=== PATIENT | female | born 1950 | race Caucasian/White ===

== ENCOUNTER 2017-05-22 08:13 | Inpatient (IN) | payer OTHER, BC ==
[~2017-05-22 08:13] MED LIST: ceFAZolin 2 GM/SWFI 2 GM/20 ML SYR IVP ONE
[2017-05-22] MEDS ORDERED: LIDOCAINE 1% 2 ML INJ ID PRN (10:24)
[2017-05-22] MEDS ORDERED: LR 1,000 ML IV ONE (10:24)
--- NOTE | 2017-05-22 11:04 | PDANEPAE ---
ANE History of Present Illness 66 year old female presents for left cerebellar mass resection. ANE Past Medical History - Cardiovascular History Hx Hypertension: Yes Hx Arrhythmias: No Hx Chest Pain: No Hx Coronary Artery / Peripheral Vascular Disease: No Hx CHF / Valvular Disease: No Hx Palpitations: No Cardiovascular History Comment: 128/80. on 3 meds for HTN, Chol Rx. 3 stents. - Pulmonary History Hx COPD: No Hx Asthma/Reactive Airway Disease: No Hx Recent Upper Respiratory Infection: No Hx Oxygen in Use at Home: No Hx Sleep Apnea: No Sleep Apnea Screening Result - Last Documented: Negative Pulmonary History Comment: 2014- SOB w/climbing stairs/hiking. Pneumonia 2013. - Neurologic History Hx Cerebrovascular Accident: No Hx Seizures: No Hx Dementia: No Neurologic History Comment: brain mass. Since vision problems L eye,leg numbness.severe H/A, generalized pain in extremities. memory,some slurred speech. 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 heart cath w/2 stent 2011. heart cath w/1 stent 2012 ANE Review of Systems Review of systems is: negative Review of Systems: - Exercise capacity Exercise capacity: <4 METS METS (RN): 3 METS ANE Patient History - Allergies Allergies/Adverse Reactions: latex Allergy (Verified 05/22/17 10:48) Rash Penicillins Allergy (Verified 05/19/17 13:50) Hives Sulfa (Sulfonamide Antibiotics) Allergy (Verified 05/19/17 13:50) Vomiting - Home Medications Home medications: home medication list seen and reviewed Home Medications: Furosemide 05/19/17 [Last Taken 05/21/17] Livalo 05/19/17 [Last Taken 05/21/17] Losartan Potassium 05/19/17 [Last Taken 05/21/17] Metoprolol Tartrate 05/19/17 [Last Taken 05/22/17] ASPIRIN 05/22/17 [Last Taken 05/15/17] - NPO status NPO Status: no food or drink >8 hours NPO Since - Liquids (Date): 05/22/17 NPO Since - Liquids (Time): 09:15 NPO Since - Solids (Date): 05/21/17 NPO Since - Solids (Time): 20:30 - Anes Hx Anes Hx: no prior problems - Smoking Hx Smoking Status: Former smoker Marijuana use: No - Alcohol Use Alcohol Use: Rarely - Family Anes Hx Family Anes Hx: neg - N/A ANE Labs/Vital Signs - Vital Signs Vital Signs: reviewed preoperatively; see RN documention for details Blood Pressure: 163/79 Heart Rate: 66 Respiratory Rate: 14 O2 Sat (%): 91 Height: 162.56 cm Weight: 99.79 kg ANE Physical Exam - Airway Neck exam: decreased ROM (Slightly decreased extension and only rotates head 45 degress left and right before discomfort.), increased neck circumference Mallampati Score: Class 2 Mouth exam: normal dental/mouth exam - Pulmonary Pulmonary: no respiratory distress - Cardiovascular Cardiovascular: regular rate and rhythym - ASA Status ASA Status: III ANE Anesthesia Plan Anesthesia Plan: general endotracheal anesthesia Lines/Monitors: arterial line, additional IV Total IV Anesthesia: No
[2017-05-22] MEDS ORDERED: GADOBUTROL 10 ML VIAL IVP ONE ×2 (11:37→11:39)
--- NOTE | 2017-05-22 14:07 | PDHPUP ---
History & Physical Update H&P update statement: This history and physical update is based on an assessment of the patient which was completed after admission or registration (within 24 hours), but prior to the surgery/procedure. H&P update: H&P reviewed & patient examined, no change in patient's condition since H&P completed
[2017-05-22] MEDS ORDERED: BACITRACIN ZINC 14.2 GM OINTTUBE TP ONE (14:14)
[2017-05-22] MEDS ORDERED: BUPIVACAINE 0.25% 30 ML SDV ONE (14:14)
[2017-05-22] MEDS ORDERED: THROMBIN (BOVINE) 5,000 UNIT VIAL TP ONE (14:16)
[2017-05-22] MEDS ORDERED: MANNITOL 20% 100 GM/500 ML BAG IV ONE ×2 (14:16→17:24)
[2017-05-22] MEDS ORDERED: AVITENE POWDER 1 GM JAR TP ONE (14:17)
[2017-05-22] MEDS ORDERED: BACITRACIN 50,000 UNITS/10 ML SYR IRR ONE (14:17)
[2017-05-22] MEDS ORDERED: POVIDONE-IODINE 30 GM OINTTUBE TP ONE (14:17)
[2017-05-22] MEDS ORDERED: REMIFENTANIL HCL 1 MG VIAL ONE ×4 (14:18→18:26)
[2017-05-22] MEDS ORDERED: CHLORHEXIDINE GLUC HIBICLENS 118 ML BTL TP ONE (14:18)
[2017-05-22] MEDS ORDERED: fentaNYL 100 MCG/2 ML INJ ONE ×2 (14:18→19:17)
[2017-05-22] MEDS ORDERED: PROPOFOL/EMULSION 500 MG/50 ML BOTTLE IV ONE ×4 (14:19→18:26)
[2017-05-22] MEDS ORDERED: PROPOFOL 200 MG/20 ML VIAL ONE (14:19)
[2017-05-22] MEDS ORDERED: PHENYLEPHRINE HCL 100 MCG/ML SYR ONE (14:22)
[2017-05-22] MEDS ORDERED: SUCCINYLCHOLINE CHLORIDE*ANESTHESIA ONLY*200 MG/10 ML SYR IVP ONE (14:22)
[2017-05-22] MEDS ORDERED: ROCURONIUM 50 MG/5 ML VIAL ONE (14:22)
[2017-05-22] MEDS ORDERED: LIDOCAINE 2% 5 ML SDV ONE (14:22)
[2017-05-22] MEDS ORDERED: LACTULOSE 20 GM/30 ML UDCUP PO PRN (18:50)
[2017-05-22] MEDS ORDERED: MAG HYDROX/AL HYDROX/SIMETH 30 ML UDCUP PO PRN (18:50)
[2017-05-22] MEDS ORDERED: MAGNESIUM HYDROXIDE 30 ML UDCUP PO PRN (18:50)
[2017-05-22] MEDS ORDERED: HYDROCODONE/APAP 10/325 TAB PO PRN (18:50)
[2017-05-22] MEDS ORDERED: ONDANSETRON DISINTEGRATING 4 MG TAB PO PRN (18:50)
[2017-05-22] MEDS ORDERED: BISACODYL 10 MG SUPP PR PRN (18:50)
[2017-05-22] MEDS ORDERED: PROMETHAZINE HCL 25 MG/ML INJ IVP PRN (18:50)
[2017-05-22] MEDS ORDERED: niCARdipine/NACL/200 ML BAG IV ONE (18:55)
[2017-05-22] MEDS ORDERED: *MD ORDERING ONLY-DEXAMETHASONE TAPER PO SCH (19:00)
--- NOTE | 2017-05-22 19:00 | SOAPPROG ---
SOAP Progress Note Assessment/Plan: Assessment: 66 yo F sp left retromastoid craniotomy for resection of probable meningioma Plan: stable to ICU lumbar drain open at 10-20 ml/hour on decadron MRI in am please call with neuro changes 05/22/17 18:58 Subjective: + headache Objective: Vital Signs Temp Pulse Resp BP Pulse Ox 36.5 C 66 14 163/79 H 91 L 05/22/17 10:42 05/22/17 13:40 05/22/17 13:40 05/22/17 13:40 05/22/17 13:40 somnolent PERRL, EOMI, no facial droop GUADALUPE x 4 + light touch ICD10 Worksheet Patient Problems: Problems Problem Status Onset Meningioma of cerebellum Acute - ICD10 Problem Qualifiers (1) Meningioma of cerebellum
[2017-05-22] MEDS ORDERED: HYDROmorphONE/DILAUDID 1 MG/ML INJ IVP PRN ×2 (19:56→19:57)
[2017-05-22] MEDS ORDERED: LR 500 ML IV PRN (19:56)
[2017-05-22] MEDS ORDERED: NALOXONE HCL 0.4 MG/ML INJ IVP PRN ×2 (19:56→19:57)
[2017-05-22] MEDS ORDERED: fentaNYL 100 MCG/2 ML INJ IVP PRN ×2 (19:56→19:57)
[2017-05-22] MEDS ORDERED: OXYCODONE/APAP 5/325 TAB PO PRN (19:57)
[2017-05-22] MEDS: ONDANSETRON 4 MG/2 ML VIAL IVP PRN (20:10)
[2017-05-22] MEDS: SENNOSIDES/DOCUSATE SODIUM TAB PO SCH (20:30)
[2017-05-22] MEDS: NS W/ 20 KCl/L 1,000 ML IV SCH (20:49)
--- NOTE | 2017-05-22 21:23 | POSTANESTH ---
Post Anesthetic Evaluation Cardiovascular Status: Tx Hyper/Hypo-tension (Patient with hypertension. On emergence from anesthesia, needed to initiate a nicardipine drip to keep target systolic BP<140mmHg) Respiratory Status: Normal, Stable Level of Consciousness/Mental Status: Mildly Sleepy, Arousable Pain Control: Adequate, Prn Tx Ordered Nausea/Vomiting Control: Adequate, Prn Tx Ordered Complications Possibly Related to Anesthesia: None Noted
[2017-05-22] MEDS: niCARdipine/NACL 200 ML IV PRN (21:25)
[2017-05-22] MEDS: POLYETHYLENE GLYCOL 3350 17 GM PKT PO SCH (22:17)
--- NOTE | 2017-05-23 04:33 | GOP ---
[f rep st] OPERATIVE REPORT DATE OF OPERATION: 05/22/2017 SURGEON: Charlie Melgar MD DOLL WIG [employer]KER ROOTED HAIR: Nate Caceres PA-C. ANESTHESIA: General endotracheal. PREOPERATIVE DIAGNOSIS: Left-sided supratentorial and infratentorial meningioma with significant mas s effect and effacement of the 4th ventricular system. POSTOPERATIVE DIAGNOSIS: Left-sided supratentorial and infratentorial meningioma with significant ma ss effect and effacement of the 4th ventricular system. PROCEDURE PERFORMED: 1. Combined supratentorial and infratentorial retromastoid craniotomy for open biopsy/resection of l arge meningioma, which appeared dural. 2. Reconstruction with bovine pericardial graft. 3. Use of intraoperative microscopy and computer volumetric stereotactic navigation. FINDINGS: ESTIMATED BLOOD LOSS: 75 cc INDICATIONS: The patient is a 66-year-old woman with headaches, dizziness, and facial pain who was f ound have a large left-sided posterior fossa meningioma that extended up into the supratentorial area . This was reviewed at the Tumor Board with multiple neurosurgeons, radiation oncologists, and oncol ogist and was felt to be too large for greater surgery or observation and she presents now for open b iopsy/resection. DESCRIPTION OF PROCEDURE: After informed consent was obtained, the patient was taken to the operatin g room and placed in the lateral position with the head flexed, the vertex down, and the nose turned downward. The Omaze neuronavigational system was connected and verified and the ideal location for the craniotomy area was identified. The area was retromastoid area was prepped and draped in a ster ile fashion. A curvilinear incision was created and carried down to the periosteal area, which was c arefully dissected out. The cerebellar retractors were inserted and a combined supratentorial and in fratentorial craniotomy was performed. Hemostasis was achieved with bipolar electrocauterization. T he dura was opened at the inferior aspect of the tumor and extended up all the way to the level of th e transverse sinus superiorly and almost to the sigmoid sinus Rostrally and laterally. The tumor was then carefully removed in piecemeal using bipolar cauterization, suction, and the pituitary rongeur. The center of the tumor was cored out and the capsule folded in upon itself so as to minimize brain retraction. The dural feeders and brain feeders were carefully coagulated as the capsule was folded in upon itself and removed. There was a nubbin of tumor remaining attached to the transverse sinus and when I tried to remove this is caused excessive bleeding, which was controlled with bipolar elect rocauterization along with Surgicel and Gelfoam soaked in thrombin. I felt that it was in the best i nterest of the patient to leave this very small amount of tumor and treat with radiosurgery postopera tively. I achieved approximately 95-97% gross total resection. The remaining tumor was coagulated a nd the dura closed in a watertight fashion with a bovine pericardial graft and running 5-0 Prolene rodriguez tures. DuraGen was placed over this. The craniotomy defect was replaced and secured with multiple t itanium plates and screws after thoroughly waxing the mastoid air cells. The fascia layers were then closed with interrupted Vicryl sutures followed by obed in the skin. COMPLICATIONS: None. DISPOSITION: The patient is currently in the process of being repositioned for extubation. A lumbar drain was placed in a standard fashion prior to surgery and we did drain some CSF upon openi ng the dura in order to relieve some of the pressure. This was a very difficult placement of lumbar drain because of her body habitus (obesity). /[id number]/MODL
[2017-05-23] MEDS: niCARdipine/NACL 200 ML IV PRN (05:02)
[2017-05-23 05:32] LABS: % IMMATURE GRANULYOCYTES 0.3 % (0.0-1.1); ABSOLUTE IMMATURE GRANULOCYTES 0.04 10^3/uL (0.00-0.10); ADD DIFF? NO; ADD MORPH? NO; ADD SCAN? NO; ATYPICAL LYMPHOCYTE FLAG 0 (0-99); FRAGMENT RBC FLAG 0 (0-99); HEMATOCRIT 40.7 % (38.0-47.0); HEMOGLOBIN 13.4 g/dL (12.6-16.3); LEFT SHIFT FLG 0 (0-99); LIPEMIA HEMOLYSIS FLAG 80 (0-99); MEAN CELL HEMOGLOBIN 28.7 pg (27.9-34.1); MEAN CELL HEMOGLOBIN CONCENTR. 32.9 g/dL (32.4-36.7); MEAN CELL VOLUME 87.2 fL (81.5-99.8); MEAN PLATELET VOLUME 9.9 fL (8.7-11.7); PLATELET CLUMPS FLAG 0 (0-99); PLATELET COUNT 170 10^3/uL (150-400); RED BLOOD CELL COUNT 4.67 10^6/uL (4.18-5.33); RED CELL DISTRIBUTION WIDTH 13.4 % (11.5-15.2)
[2017-05-23 05:46] LABS: ANION GAP 15 mEq/L (8-16); CALCIUM 8.8 mg/dL (8.5-10.4); CARBON DIOXIDE 19 mEq/l (22-31); CHLORIDE 110 mEq/L (97-110); CREATININE 0.7 mg/dL (0.6-1.0); GLOMERULAR FILTRATION RATE > 60; GLUCOSE 136 mg/dL (70-100); POTASSIUM 4.5 mEq/L (3.5-5.2); SODIUM 144 mEq/L (134-144)
[2017-05-23] MEDS: DEXAMETHASONE 4 MG TAB PO SCH ×3 (06:00→17:58)
--- NOTE | 2017-05-23 08:42 | SOAPPROG ---
SOAP Progress Note Assessment/Plan: Assessment: POD #1 sp left retromasoid craniotomy and placement on Lumbar drain. Doing well this AM Plan: MRI today. PT/OT/ST Will DC lumbar drain later today and transfer to floor per DR. Steel Keep LD titrated to drain approx 10ml/hr D/W Dr. Melgar Subjective: asleep, wakes easily. Comfortable. Had N/V overnight, now resolved. Reports longstanding, unchanged left thigh paresthesias Objective: Vital Signs Temp Pulse Resp BP Pulse Ox 37.0 C 91 12 123/65 H 92 05/23/17 02:00 05/23/17 07:00 05/23/17 07:00 05/23/17 07:00 05/23/17 07:00 Laboratory Results 05/23/17 05:00 05/23/17 05:00 05/22/17 05/23/17 05/24/17 05:59 05:59 05:59 Intake Total 919 Output Total 2554 14 Balance -1635 -14 Neuro: JAY, sens +LT follows commands speech clear PERRLA, EOMI Incision: CDI. No CHEYANNE ICD10 Worksheet Patient Problems: Problems Problem Status Onset Meningioma of cerebellum Acute
[2017-05-23] MEDS: SENNOSIDES/DOCUSATE SODIUM TAB PO SCH ×2 (08:58→20:43)
[2017-05-23] MEDS: OXYCODONE/APAP 5/325 TAB PO PRN ×2 (08:58→20:43)
[2017-05-23] MEDS: POLYETHYLENE GLYCOL 3350 17 GM PKT PO SCH ×3 (08:58→20:42)
[2017-05-23] MEDS ORDERED: LIDOCAINE 1% 300 MG/30 ML SDV ONE (10:23)
[2017-05-23] MEDS: ONDANSETRON 4 MG/2 ML VIAL IVP PRN (10:31)
[2017-05-23] MEDS: NS W/ 20 KCl/L 1,000 ML IV SCH (10:41)
--- NOTE | 2017-05-23 11:52 | ASMTCASEMG ---
Living Arrangements What is your living Answers: With Spouse arrangement? Who do you live with? Type Of Residence What kind of residence do Answers: House you live in? Discharge Plan Comments Coordination Status Comments Notes: Patient is a 66yo female who was admitted for left retromastoid brain tumor and a retro mastois excision of tumor. PT/OT/SPL have been ordered. D/C needs TBD. CM will follow. Date Signed: 05/23/2017 11:52 AM Electronically Signed By:Ligia Caballero LCSW
[2017-05-23] MEDS ORDERED: LIDOCAINE 1% 300 MG/30 ML SDV MISC ONE (12:00)
[2017-05-23] MEDS ORDERED: GADOBUTROL 10 ML VIAL IVP ONE (13:43)
[2017-05-24] MEDS: DEXAMETHASONE 4 MG TAB PO SCH (00:44)
[2017-05-24] MEDS: DEXAMETHASONE 2 MG TAB PO SCH ×2 (05:26→13:14)
[2017-05-24] MEDS: OXYCODONE/APAP 5/325 TAB PO PRN ×2 (05:26→13:05)
--- NOTE | 2017-05-24 06:23 | NEUSURGPN ---
Date of Surgery: 05/22/17 Post Op Day: 2 Assessment/Plan: Assessment: POD #2 s/p left retromastoid craniotomy and placement on lumbar drain Plan: -doing well this AM -MRI brain after surgery that shows post op changes and noted left cerebellar infarct-Dr Funez aware -PT/OT/ST-CPM -lumbar drain removed yesterday -CDI to LD site as well to surgery site -on decadron taper -plan for dc later today -pt understands and agrees -call with any questions or concerns -D/W Dr. Melgar Subjective: Awake and alert. NAD. Pt with some expected incisional pain. No quigley/neck/chest/ abd or gu complaints. No f/c/n/v/d. Objective: JAY, sens +LT follows commands speech clear PERRLA, EOMI Incision: CDI to LD site and to retromastoid area No CHEYANNE Neuro Check Frequency: per routine Urinary Catheter in Place: No Catheter Insertion Date: 05/22/17 - Physician Discussed Patient with : Ramón Neurosurgery Physical Exam - Vitals, I&O, Labs I and O 05/23/17 05/24/17 05/25/17 05:59 05:59 05:59 Intake Total 919 1604 Output Total 2554 854 Balance -1635 750 Weight 99.5 kg Intake: Oral (ml) 1000 IV Infused (ml) 919 604 NS W/ 20 KCl/L 1,000 ml @ 622 572 75 mls/hr IV CONT GERA Rx #:[id number] niCARdipine/NACL 200 ml @ 297 32 Titrate IV PRN PRN Rx#: [id number] Output: Urine (ml) 2400 750 Catheter 2400 750 CSF Drainage Amount 154 104 Lumbar Drain 154 104 Other: Intake Quantity Yes Sufficient Number of Voids Toilet 1 Vital Signs Temp Pulse Resp BP Pulse Ox 36.8 C 88 17 144/61 H 90 L 05/24/17 03:48 05/24/17 03:48 05/24/17 03:48 05/24/17 03:48 05/24/17 03:48 Laboratory Results 05/23/17 05:00 05/23/17 05:00 ICD10 Worksheet Patient Problems: Problems Problem Status Onset Meningioma of cerebellum Acute
[2017-05-24 07:54] VITALS: RESP 16
[2017-05-24] MEDS: POLYETHYLENE GLYCOL 3350 17 GM PKT PO SCH (08:21)
[2017-05-24] MEDS: SENNOSIDES/DOCUSATE SODIUM TAB PO SCH (08:21)
--- NOTE | 2017-05-24 11:37 | ASMTCMCOM ---
CM Note CM Note Notes: Pt medically stable for d/c. PT/OT rec home, [facility] rec HHC vs. outpatient. Spoke w pt who declines HHC and reports she will f/u w outpatient [facility]. No CM d/c needs identified. Date Signed: 05/24/2017 11:37 AM Electronically Signed By:QUANG Merchant
[2017-05-24 12:26] VITALS: BP 158/77; PULSE 93; TEMP 97
[2017-05-24 13:05] VITALS: O2SAT 92
--- NOTE | 2017-05-24 16:32 | ASDISCHSUM ---
Discharge Information Plan Status:Home with No Needs Medically Cleared to Leave: Discharge Date:05/24/2017 04:06 PM D/C Disposition:Home, Routine, Self-Care ADT D/C Disposition:Home, Routine, Self-Care Projected Discharge Date:05/24/2017 04:06 PM Transportation at D/C: Discharge Delay Reason: Follow-Up Date:05/24/2017 04:06 PM Discharge Slot: Final Diagnosis: Placement Information Patient Contact Information Contact Name:ROGERS Relationship: Address: Work Phone: City: [facility] Phone: State/Zip Code: Email: Financial Information Financial Class: Primary Plan Desc:MEDICARE INPATIENT Primary Plan Number:[id number] Secondary Plan Desc: OUT OF STATE [facility] Secondary Plan Number:[id number] Assessment Information [facility] Initial CM Assessment Living Arrangements What is your living Answers: With Spouse arrangement? Who do you live with? Type Of Residence What kind of residence do Answers: House you live in? Discharge Plan Comments Coordination Status Comments Notes: Patient is a 66yo female who was admitted for left retromastoid brain tumor and a retro mastois excision of tumor. PT/OT/SPL have been ordered. D/C needs TBD. CM will follow. Date Signed: 05/23/2017 11:52 AM Electronically Signed By:Ligia Caballero LCSW [facility] CM Progress Note CM Note CM Note Notes: Pt medically stable for d/c. PT/OT rec home, [facility] rec HHC vs. outpatient. Spoke w pt who declines HHC and reports she will f/u w outpatient [facility] [employer] [facility]. No CM d/c needs identified. Date Signed: 05/24/2017 11:37 AM Electronically Signed By:QUANG Merchant Intervention Information
[2017-05-25] MEDS ORDERED: DEXAMETHASONE 2 MG TAB PO SCH (06:00)
[2017-05-25] MEDS ORDERED: ENOXAPARIN 40 MG/0.4 ML SYR SC SCH (09:00)
[2017-05-26] MEDS ORDERED: DEXAMETHASONE 2 MG TAB PO SCH (09:00)
[2017-05-27] MEDS ORDERED: DEXAMETHASONE 2 MG TAB PO SCH ×2 (09:00)
== END 2017-05-24 16:06 | disposition home or self-care (01) | DRG 27 ==
LOC: F3N 10:09 → F2N 18:39 → F3N 05-23 18:26
PROVIDERS: ADMIT Neurological Surgery; ATTEND Neurological Surgery
PROC: 00B20ZX Excision of Dura Mater, Open Approach, Diagnostic (ICD-10-PCS; principal; 2017-05-22 12:45)
DX: D32.0 Benign neoplasm of cerebral meninges (principal); I72.9 Aneurysm of unspecified site; I10 Essential (primary) hypertension; E04.1 Nontoxic single thyroid nodule; Z87.891 Personal history of nicotine dependence
CPT/HCPCS: 92507-GN; 92523-GN; 97161-GP; 97166-GO; 97535-GO; A9585; C1713; C1729; C1763; G8978-GP-CJ; G8979-GP-CI; G8987-GO-CJ; G8988-GO-CI; G8989-GO-CI; G9168-GN-CJ; G9169-GN-CJ; J0171; J0330; J0690; J2370; J2405; J2550; J2704; J3010